=== PATIENT | female | born 1975 | race Caucasian/White ===

== ENCOUNTER → 2017-04-03 | Outpatient (CLI) | payer OTHER ==
--- NOTE | 2017-04-03 15:51 | Diagnostic Imaging Report ---
PROCEDURE: MRI lumbar spine. TECHNIQUE: Multiplanar, multisequence MRI of the lumbar spine was performed without contrast. INDICATION: Lumbar radiculopathy. Low back pain. FINDINGS: There is a transitional lumbosacral junction with prominent disc between S1 and S2. The alignment of the posterior spinal line is satisfactory. The vertebral body heights are preserved. Disc heights are also preserved with disc desiccation seen at L5/S1. There is no significant marrow signal abnormality. The cauda equina and the conus medullaris appear grossly unremarkable. T12/L1: There is no disc herniation, no spinal canal or foraminal stenosis. L1/2: No disc herniation, no spinal canal or foraminal stenosis. There is a perineural cyst in the right neural foramen measuring 5 mm in size. L2/3: No disc herniation. No spinal canal or foraminal stenosis. L3/4: There is no disc herniation. There is some mild facet hypertrophy. No central canal, lateral recess or foraminal stenosis however. L4/5: There is no disc herniation. There is moderate facet hypertrophy. No central canal, or lateral recess stenosis is seen. There is mild foraminal stenosis noted bilaterally. L5/S1: There is moderate to severe facet hypertrophy. No disc herniation. No central canal stenosis. There is mild lateral recess stenosis on the left side and no lateral recess stenosis on the right. The foramina demonstrates mild stenosis on the right and moderate to severe stenosis on the left. IMPRESSION: Overall relatively mild degenerative changes. 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 Dictated by: Dictated on workstation # [id number]
== END ==
LOC: RAD 10:49
PROVIDERS: ATTEND Nurse Practitioner Family
DX: M48.06 Spinal stenosis, lumbar region (principal)
CPT/HCPCS: 72148

== ENCOUNTER → 2018-01-23 | Outpatient (CLI) | payer OTHER ==
--- NOTE | 2018-01-24 18:59 | Diagnostic Imaging Report ---
INDICATION: Routine screening. Comparison is made with prior exam from 06/20/2016 and 02/14/2015. The current study was also evaluated with a Computer Aided Detection (CAD) system. FINDINGS: Both breasts are heterogeneously dense, limiting the sensitivity of mammography. There are numerous circumscribed masses throughout both breasts, most consistent with benign etiology such as cysts. No spiculated mass or malignant-appearing microcalcifications are seen. There are benign calcifications bilaterally. There is a biopsy clip in the left breast. Axillae are unremarkable. IMPRESSION: No mammographic features suspicious for malignancy are identified. ACR BI-RADS Category 2: Benign findings. Result letter will be mailed to the patient. Note: At least 10% of breast cancer is not imaged by mammography. Dictated by: Dictated on workstation # [id number]
== END ==
LOC: RAD 15:51
PROVIDERS: ATTEND Nurse Practitioner Family
DX: Z12.31 Encounter for screening mammogram for malignant neoplasm of breast (principal)
CPT/HCPCS: 77067

== ENCOUNTER → 2018-12-17 | Outpatient (CLI) | payer OTHER ==
--- NOTE | 2018-12-17 09:54 | Diagnostic Imaging Report ---
INDICATION: Bilateral breast lumps. COMPARISON: 01/23/2018 and 06/20/2016. TECHNIQUE: 2D and 3D bilateral diagnostic mammography was performed with CAD. FINDINGS: Both breasts are heterogeneously dense, limiting the sensitivity of mammography. There are innumerable circumscribed rounded masses throughout both breasts which have waxed and waned since prior imaging and are most consistent with cysts. No spiculated mass is seen. There are benign calcifications bilaterally. No malignant appearing microcalcifications are seen. There are two biopsy clips in the left breast from prior biopsy. BB markers were placed at the areas of palpable abnormality in the lateral portion of the right breast and medial portion of the left breast. No underlying abnormality at the area of palpable abnormality in the right breast is seen. There is some nodularity deep to the BB in the medial left breast which likely represent cysts. Further evaluation with ultrasound is recommended and will be performed today. IMPRESSION: Bilateral breast cysts. There are some probable cysts at the area of palpable abnormality in the medial left breast. No abnormality at the area of palpable abnormality in the right breast is seen. Even so, directed sonographic interrogation of the bilateral breasts is recommended and will be performed today. ACR BI-RADS Category 0: Incomplete. (Needs additional imaging evaluation). Result letter will be mailed to the patient. Note: At least 10% of breast cancer is not imaged by mammography. Dictated by: Dictated on workstation # [id number]
--- NOTE | 2018-12-17 10:53 | Diagnostic Imaging Report ---
INDICATION: Bilateral breast lumps. COMPARISON: Correlation is made with the diagnostic exam done earlier this same day. TECHNIQUE: Sonographic interrogation of the areas of palpable abnormality in both breasts was performed. This does correspond to the 9 o'clock location of the right and left breasts. FINDINGS: The right breast does demonstrate a lobulated circumscribed mass at the 9 o'clock location 10 cm from the nipple measuring 1.8 x 0.7 x 1.3 cm. There does appear to be some mild blood flow present and this may represent a fibroadenoma. Additional smaller nodules are present as well. The left breast contains multiple circumscribed hypoechoic masses at the 9 o'clock location 6 cm from the nipple. The largest is approximately 1.3 x 1.1 x 1.2 cm. This does contain some blood flow along the margins. A second nodule is approximately 9 mm in diameter. IMPRESSION: There are numerous circumscribed hypoechoic solid appearing masses at the 9 o'clock locations of both breasts at the areas of palpable abnormality. These most likely represent fibroadenomas. A followup ultrasound in 6 months is recommended to confirm stability. ACR BI-RADS Category 3: Probably benign findings. Dictated by: Dictated on workstation # [id number]
== END ==
LOC: RAD 09:10
PROVIDERS: ATTEND Nurse Practitioner Family
DX: N63.10 Unspecified lump in the right breast, unspecified quadrant (principal); N63.20 Unspecified lump in the left breast, unspecified quadrant; N60.01 Solitary cyst of right breast; N60.02 Solitary cyst of left breast; Z80.3 Family history of malignant neoplasm of breast
CPT/HCPCS: 76642; 77066

== ENCOUNTER → 2019-06-19 | Outpatient (CLI) | payer OTHER ==
--- NOTE | 2019-06-19 16:34 | Diagnostic Imaging Report ---
INDICATION: Six-month follow-up of bilateral breast nodules. Correlation is made with prior breast ultrasound from 12/17/2018. FINDINGS: There are numerous circumscribed hypoechoic nodules identified at the 9 o'clock locations of both breasts. The largest nodule on the left is approximately 1.4 x 0.8 x 1.2 cm. This is similar to prior exam. Largest nodule on the right measures 1.3 x 0.5 x 1.1 cm. This has decreased in size since prior study where measurement was 1.8 x 0.7 x 1.3 cm. No definite new or concerning mass is detected. IMPRESSION: Overall stable solid-appearing nodules at the 9 o'clock location of both breasts when compared with examination from six months earlier. Continued additional follow-up ultrasound in six months is recommended to show continued stability. ACR BI-RADS Category 3: Probably benign findings. Dictated by: Dictated on workstation # [id number]
== END ==
LOC: RAD 14:48
PROVIDERS: ATTEND Nurse Practitioner Family
DX: N63.10 Unspecified lump in the right breast, unspecified quadrant (principal); N63.20 Unspecified lump in the left breast, unspecified quadrant
CPT/HCPCS: 76642

== ENCOUNTER 2019-09-23 16:06 | Emergency (ER) | payer SELFPAY ==
[~2019-09-23] VITALS: Ht 165.6 cm; Wt 102.3 kg
--- NOTE | 2019-09-23 17:16 | ED Trauma-Multisystem ---
General Chief Complaint: Trauma-Non Activation Stated Complaint: FELL HIT HEAD Nursing Triage Note: Pt amb to sukh with c/o fall. Pt reports on 09/22/19 @ approx 1000 while walking her dog, she slipped on ice, striking her head. Pt reports headache and Lt sided neck discomfort. Pt reports symptoms of dizziness and blurred vision began on this day. C-collar applied during triage. A&OX4. (MAURY BARRAGAN) History of Present Illness Date Seen by Provider: Sep 23, 2019 Time Seen by Provider: 16:35 Initial Comments 44-year-old female presents for a fall yesterday morning at approximately 10:00 AM. She slipped on the ice and hit her head on the left occipital region. She denies any skin abrasions or lacerations. She had no loss of consciousness. She had mild nausea yesterday and continues to have a headache. She is continuing to occipital head pain and neck pain on the left. She reports that her vision has been blurry since the fall. She's had no previous concussion. She is not on aspirin or anticoagulants. C-collar placed in Triage. Occurred: Yesterday Pain/Injury Location: Head Method of Injury: Fall Modifying Factors: Rest Loss of Consciousness: No Loss of Consciousness Associated Symptoms (Fall): Denies Symptoms; No Abdominal Pain, No Chest Pain, No Confusion, No Dizziness, No Headache, No Lightheadedness, No Muscle Spasms; Nausea/Vomiting; No Neck Pain, No Ringing in Ears, No Seizures, No Shortness of Air, No Slurred Speech, No Trouble Walking; Vision Changes (blurry); No Other (MAURY BARRAGAN) Allergies and Home Medications Allergies Coded Allergies: No Known Drug Allergies (Unverified , 04/01/14) Patient Home Medication List Home Medication List Reviewed: Yes (MAURY BARRAGAN) Review of Systems Review of Systems Constitutional: no symptoms reported, see HPI Eyes: See HPI, Blurred Vision Ears: No Symptoms Reported, See HPI Nose: No Symptoms Reported, See HPI Mouth: No Symptoms Reported, See HPI Gastrointestinal: see HPI, nausea : No (history of tubal ligation) Musculoskeletal: see HPI, neck pain Skin: no symptoms reported, see HPI Psychiatric/Neurological: No Symptoms Reported, See HPI (MAURY BARRAGAN) All Other Systems Reviewed Negative Unless Noted: Yes (MAURY BARRAGAN) Past Qsaujkg-Axcwgc-Gxhiia Hx Past Med/Social Hx: Reviewed Nursing Past Med/Soc Hx (MAURY BARRAGAN) Patient Social History Alcohol Use: Denies Use Recreational Drug Use: No Smoking Status: Never a Smoker 2nd Hand Smoke Exposure: No Recent Foreign Travel: No Contact w/Someone Who Travel: No Recent Infectious Disease Expo: No Recent Hopitalizations: No (MAURY BARRAGAN ERASMO) Seasonal Allergies Seasonal Allergies: No (MAURY BARRAGAN ERASMO) Past Medical History Surgeries: Yes Tubal Ligation Respiratory: No Cardiac: Yes Hypertension Neurological: No Genitourinary: No Gastrointestinal: No Musculoskeletal: No Endocrine: No HEENT: No Cancer: No Psychosocial: No Integumentary: No Blood Disorders: No (MAURY BARRAGANP) Physical Exam Vital Signs Vital Signs - First Documented 09/23/19 16:27 Temp 37.2 Pulse 92 Resp 17 B/P (MAP) 124/79 (94) Pulse Ox 99 O2 Delivery Room Air (LORNA PRESTON APRN) Height, Weight, BMI Height: 5'4.00" Weight: 185lbs. oz. 83.928351uy; 37.00 BMI Method: General Appearance: No Apparent Distress, WD/WN Head: No Evidence of Injury; No Contusions, No Ecchymosis, No Lacerations, No Swelling, No Tenderness Eyes: Bilateral Eye Normal Inspection, Bilateral Eye PERRL, Bilateral Eye EOMI Ears, Nose, Throat: Hearing Grossly Normal, No Evidence of ENT Injury, No Dental Injury; No Hemotympanum Neck: Full Range of Motion, Normal Inspection, Non Tender, Supple, Limited Range of Motion, Tender Lateral (left); No Tender Midline (secondary to c- collar) Cardiovascular: Regular Rate, Rhythm, No Edema Respiratory: Chest Non Tender, Lungs Clear, Normal Breath Sounds Gastrointestinal: Normal Bowel Sounds, Non Tender, Soft Back: Normal Inspection, No CVA Tenderness Extremity: Normal Capillary Refill, Normal Inspection, Normal Range of Motion Neurologic/Psychiatric: Alert, Oriented x3, No Motor/Sensory Deficits, Normal Mood/Affect, technology intern II-XII Norm as Tested (grossly intact), Other (negative Romberg, fever. Follow all commands, finger to nose and rapid alternating movements of her hand.) (MAURY BARRAGAN ERASMO) Cecille Coma Score Best Eye Response ([place]): (4) Open Spontaneously Best Verbal Response ([place]): (5) Oriented Best Motor Response ([place]): (6) Obeys Commands [place] Total: 15 (MAURY BARRAGAN) Progress/Results/Core Measures Results/Orders Vital Signs/I&O 09/23/19 16:27 Temp 37.2 Pulse 92 Resp 17 B/P (MAP) 124/79 (94) Pulse Ox 99 O2 Delivery Room Air (LORNA PRESTON APRN) Blood Pressure Mean: 94 Progress Progress Note : Time: 16:35 Progress Note Patient seen and evaluated, will maintain c-collar and obtain CT of head and neck. 1700 Report given and care transferred to Lorna Preston APRN. (MAURY BRARAGAN) Progress Note : Progress Note NAME: ANDI CASEY [facility] REC#: [id number] PT STATUS: REG ER : 1975 PHYSICIAN: MAURY BARRAGAN ADMIT DATE: 09/23/19/ER Draft Date of Exam:09/23/19 CT HEAD/CERVICAL SPINE WO PROCEDURE: CT head and CT cervical spine without contrast. TECHNIQUE: Multiple contiguous axial images were obtained through the brain and cervical spine without the use of intravenous contrast. Sagittal and coronal reformations through the cervical spine were then performed. Auto Exposure Controls were utilized during the CT exam to meet ALARA standards for radiation dose reduction. INDICATION: 44-year-old female, injured in a fall, presents with headache and neck pain. COMPARISONS: None. CT HEAD WITHOUT CONTRAST: FINDINGS: Midline structures are not displaced. Lateral, third, and fourth ventricles are normal in size, shape, and anatomic position. There is no mass, mass effect, hydrocephalus, or hemorrhage. Ramírez-white differentiation is normal. There is no sulcal effacement. There are no abnormal extra axial fluid collections or hemorrhage. Basilar cisterns appear normal. Sinuses, orbits, and mastoid air cells are normal. Bone windows show no calvarial changes. IMPRESSION: Unremarkable nonenhanced CT brain. CT CERVICAL SPINE WITH RECONSTRUCTIONS: FINDINGS: Axial images and sagittal and coronal reconstructions of the cervical spine show some cervical spondylosis with multilevel hypertrophic facet changes. There is slight reversal of the cervical lordosis which is felt to be degenerative in nature. There is slight grade 1 anterolisthesis of C4 on C5. The prevertebral soft tissue as well as the predental space and the relationship of the dens to the lateral mass of C1 is normal. Lung apices are clear. Superior mediastinum is unremarkable. The parapharyngeal and paraspinous soft tissues are also normal. There are a few shotty benign-appearing cervical nodes. IMPRESSION: 1. Cervical spondylosis with multilevel hypertrophic facet changes. There is slight reversal of the cervical lordosis which is felt to be due to position. 2. No definite fracture seen. 3. There is slight grade 1 anterolisthesis of C4 on C5 which may be due to position; however, in the appropriate clinical setting, ligamentous injury is not entirely excluded. Correlation with MRI would be of further value. Dictated on workstation # [id number] Dict: 09/23/[id number] Trans: 09/23/191753 [id number] Interpreted by: CHAITANYA GONZALEZ MD Electronically signed by: (LORNA PRESTON APRN) Diagnostic Imaging Diagonstic Imaging: CT Plain Films/CT/US/NM/MRI: c-spine, head (MAURY BARRAGAN) Departure Communication (Admissions) 1803-cervical collar off at this time (LORNA PRESTON APRN) Impression Primary Impression: Fall Qualified Codes: W19.XXXA - Unspecified fall, initial encounter Additional Impression: Minor head injury Qualified Codes: S09.90XA - Unspecified injury of head, initial encounter Disposition: 01 HOME, SELF-CARE Condition: Improved Departure-Patient Inst. Decision time for Depature: 18:04 (LORNA PRESTON APRN) Referrals: [facility] [place] Primary Care Physician ABRAHAM BRISCOE (Family) Primary Care Physician Patient Instructions: Closed Head Injury (DC) Add. Discharge Instructions: Limit time on technology (brain rest): TV, computers, video games, smart phones, etc. Increase water intake' Change positions slowly. Tylenol 650 mg every 6 hours as needed for headache. Follow-up with your primary care provider if symptoms are not improving or worsen. No driving if vision is blurry or any other neurological changes. Return to emergency department for vision changes, nausea and vomiting, seizure activity, or any other changes in mental status. All discharge instructions reviewed with patient and/or family. Voiced understanding. MAURY BARRAGAN Sep 23, 2019 17:16 LORNA PRESTON APRN Sep 23, 2019 18:07
[2019-09-23] MEDS ORDERED: ACETAMINOPHEN 325 MG TABLET PO STA (17:20)
[2019-09-23] MEDS ORDERED: ONDANSETRON 4 MG (ZOFRAN) ORAL DISSOLVE TAB SL STA (17:20)
--- NOTE | 2019-09-23 17:54 | Diagnostic Imaging Report ---
PROCEDURE: CT head and CT cervical spine without contrast. TECHNIQUE: Multiple contiguous axial images were obtained through the brain and cervical spine without the use of intravenous contrast. Sagittal and coronal reformations through the cervical spine were then performed. Auto Exposure Controls were utilized during the CT exam to meet ALARA standards for radiation dose reduction. INDICATION: 44-year-old female, injured in a fall, presents with headache and neck pain. COMPARISONS: None. CT HEAD WITHOUT CONTRAST: FINDINGS: Midline structures are not displaced. Lateral, third, and fourth ventricles are normal in size, shape, and anatomic position. There is no mass, mass effect, hydrocephalus, or hemorrhage. Ramírez-white differentiation is normal. There is no sulcal effacement. There are no abnormal extra axial fluid collections or hemorrhage. Basilar cisterns appear normal. Sinuses, orbits, and mastoid air cells are normal. Bone windows show no calvarial changes. IMPRESSION: Unremarkable nonenhanced CT brain. CT CERVICAL SPINE WITH RECONSTRUCTIONS: FINDINGS: Axial images and sagittal and coronal reconstructions of the cervical spine show some cervical spondylosis with multilevel hypertrophic facet changes. There is slight reversal of the cervical lordosis which is felt to be degenerative in nature. There is slight grade 1 anterolisthesis of C4 on C5. The prevertebral soft tissue as well as the predental space and the relationship of the dens to the lateral mass of C1 is normal. Lung apices are clear. Superior mediastinum is unremarkable. The parapharyngeal and paraspinous soft tissues are also normal. There are a few shotty benign-appearing cervical nodes. IMPRESSION: 1. Cervical spondylosis with multilevel hypertrophic facet changes. There is slight reversal of the cervical lordosis which is felt to be due to position. 2. No definite fracture seen. 3. There is slight grade 1 anterolisthesis of C4 on C5 which may be due to position; however, in the appropriate clinical setting, ligamentous injury is not entirely excluded. Correlation with MRI would be of further value. Dictated by: Dictated on workstation # [id number]
[2019-09-23 18:16] VITALS: BP 123/70
== END 2019-09-23 18:16 | disposition home or self-care (01) ==
LOC: EDUNIT# 16:06 → ER 16:08
DX: S09.90XA Unspecified injury of head, initial encounter (principal); I10 Essential (primary) hypertension; R40.2142 Coma scale, eyes open, spontaneous, at arrival to emergency department; R40.2252 Coma scale, best verbal response, oriented, at arrival to emergency department; R40.2362 Coma scale, best motor response, obeys commands, at arrival to emergency department; Z98.51 Tubal ligation status; W00.0XXA Fall on same level due to ice and snow, initial encounter; W22.8XXA Striking against or struck by other objects, initial encounter
CPT/HCPCS: 70450; 72125